=== PATIENT | female | born 1955 | race Caucasian/White ===

== ENCOUNTER 2022-02-19 05:50 | Observation (INO) ==
--- NOTE | 2022-01-25 09:33 | PAT Medication Instructions ---
Medication Instructions Date of Service January 25, 2022 Home Medications aspirin 81 mg tablet,delayed release 81 mg PO QAM atenolol 25 mg tablet 25 mg PO QAM rabeprazole 20 mg tablet,delayed release (AcipHex) 20 mg PO QAM rosuvastatin 10 mg tablet (Crestor) 10 mg PO HS thyroid (pork) 60 mg tablet 60 mg PO QAM vitamin A-vitamin C-vit E-min tablet 1 tab PO QAM STOP taking 2 weeks before surgery vitamin A-vitamin C-vit E-min tablet 1 tab PO QAM Take morning of surgery With a small sip of water, OTHERWISE NOTHING TO EAT OR DRINK AFTER MIDNIGHT: aspirin 81 mg tablet,delayed release 81 mg PO QAM (unless directed otherwise by surgeon) atenolol 25 mg tablet 25 mg PO QAM rabeprazole 20 mg tablet,delayed release (AcipHex) 20 mg PO QAM thyroid (pork) 60 mg tablet 60 mg PO QAM Take evening before surgery rosuvastatin 10 mg tablet (Crestor) 10 mg PO HS Other Notes If you have any questions please call us at [phone] or [phone] or [phone] or [phone]
--- NOTE | 2022-01-30 12:10 | Anesthesiology Consultation ---
Date of Service January 30, 2022 Assessment & Plan (1) Encounter for pre-operative examination: - COVID screening: Per assessment on 01/30: No known COVID-19 positive contacts or current COVID-19 related symptoms. Travel screen negative. Patient vaccinated. At surgeon discretion if preop Covid testing being done. - Claustrophobia: "Has had to be a general anesthetic for MRIs".. Pt request: request not to lay flat on back in the recovery room after surgery, "tends to panic" if flat on back while waking up. - RUE limb restrictions - Outpatient joint assessment: Pt currently scheduled for inpatient pathway. If surgeon requests review for outpatient joint pathway, patient is not recommended candidate for outpatient joint program from anesthesia standpoint. - Patient acceptable risk for surgery pending surgeon-ordered preop A1C (pt planning to have done 02/01 with PCP- Marcella Jimenez/[facility]). Chart Review Chart Review: Patient seen in Pre Admission Testing Teaching & Discussion Pre-Anesthesia Teaching/Discussion Notes: Instructed NPO after midnight before surgery,except medications with 15 cc of water. Medication instructions provided according to the PAT guidelines. History Surgery Operation Date: 02/19/22 10:30 Proposed Procedures p Left Total Knee Arthroplasty - Andrea Rahman, Height/Weight Height: 5 ft 2 in Weight: 111.6 kg Allergies Allergy/AdvReac Type Severity Reaction Status Date / Time doxycycline Allergy Large hive Verified 01/28/22 11:10 on back of hand, itching blister Penicillins Allergy Rash Verified 01/24/22 14:03 Sulfa (Sulfonamide Allergy Welts, lip Verified 01/28/22 11:10 Antibiotics) swelling rosuvastatin [From Crestor] AdvReac Myalgias Verified 01/30/22 13:02 Medications Home Medications Medication Instructions Recorded Confirmed Last Taken aspirin 81 mg tablet,delayed 81 mg PO QAM 01/24/22 01/24/22 Unknown release atenolol 25 mg tablet 25 mg PO QAM 01/24/22 01/24/22 Unknown rabeprazole 20 mg tablet,delayed 20 mg PO QAM 01/24/22 01/24/22 Unknown release (AcipHex) thyroid (pork) 60 mg tablet 60 mg PO QAM 01/24/22 01/24/22 Unknown vitamin A-vitamin C-vit E-min 1 tab PO QAM 01/24/22 01/24/22 Unknown tablet Past Medical History Medical History (Updated 01/30/22 @ 12:09 by Marely Reynolds) Degenerative disc disease GERD (gastroesophageal reflux disease) History of claustrophobia "Has had to be a general anesthetic for MRIs" Pt request: request not to lay flat on back in the recovery room after surgery, "tends to panic" if flat on back while waking up. Hx of breast cancer 2006 s/p right masctectomy + LND and chemo RUE limb restriction Hx of supraventricular tachycardia Reason for Atenolol Hyperlipidemia Hypothyroidism Morbid obesity Neuropathy B/L feet/LEs Osteoarthritis Exercise / Class Metabolic Activity III < 4 Walking/Shop/Light housework (one FS (no CP, + SOB)) Past Surgical History Surgical History (Updated 01/28/22 @ 11:34 by Marely Reynolds) History of esophagogastroduodenoscopy (EGD) Hx of cataract extraction Left Hx of cervical discectomy C6-C7 Hx of colonoscopy Hx of elbow surgery Left elbow tendon repair (2019) Hx of laminectomy L4-L5 Hx of mastectomy Right + LND Hx of repair of right rotator cuff Hx of tubal ligation Social History Smoking Status: Never smoker Do You Dip or Chew Tobacco: No Hx Alcohol Use: Yes alcohol intake frequency: other Alcohol Intake Frequency Comment: very rarely Hx Substance Use: No substance use type: does not use Review of Systems Patient denies chest pain, shortness of breath, dyspnea on exertion, fever, chills, cough, wheezing, palpitations. Physical Exam Vital Signs VITALS BP 150/79 P 56 TEMP 98.1 SP02 96%RA RESP 16 PHYSICAL Full cervical extension range of motion. Full TMJ range of motion. TMD 2.5 finger breaths Mallampati Score 3 Dentition: intact, + crowns (molars) Lungs: clear throughout to auscultation Cardiac: regular rate and rhythm, no murmurs noted Spine: normal Carotid arteries: negative bruit Extremities: no edema Lab Results Anesthesia Preop Results Results Anesthesia Widget: WBC 3.81 K/ul (4.8-10.8) L 01/30/22 Hgb 14.1 g/dl (12.0-16.0) 01/30/22 Hct 42.3 % (34.1-44.9) 01/30/22 Plt 183 K/uL (130-400) 01/30/22 Na 140 mmol/L (136-145) 01/30/22 K 4.2 mmol/L (3.5-5.1) 01/30/22 Cl 104 mmol/L (98-107) 01/30/22 CO2 31 mmol/L (21-32) 01/30/22 BUN 15 mg/dl (6-23) 01/30/22 Creat 0.79 mg/dl (0.6-1.2) 01/30/22 Glucose Level 92 mg/dl (70-99(Fasting)) 01/30/22 PT 11.0 Seconds (9.0-12.0) 01/30/22 PTT 26.7 Seconds (21.0-31.0) 01/30/22 INR 1.0 (0.9-1.1) 01/30/22 Urine Color Yellow 01/30/22 Urine Appearance Clear (Clear) 01/30/22 Urine pH 6.0 (4.5-7.5) 01/30/22 Urine Specific [place] 1.017 (1.000-1.030) 01/30/22 Urine Protein Negative (Negative) 01/30/22 Urine Glucose (UA) Negative (Negative) 01/30/22 Urine Ketones Negative (Negative) 01/30/22 Urine Blood Negative (Negative) 01/30/22 Urine Nitrite Negative (Negative) 01/30/22 Urine Bilirubin Negative (Negative) 01/30/22 Urine Urobilinogen Negative (Negative) 01/30/22 Urine Leukocyte Esterase 1+ (Negative) H 01/30/22 Urine WBC (Auto) 1-5 /hpf (0-5) 01/30/22 Urine RBC (Auto) 0-4 /hpf (0-4) 01/30/22 Urine Hyaline Casts (Auto) 0 /lpf (0-5) 01/30/22 Urine Epithelial Cells (Auto) 20-30 /lpf (0-5) H 01/30/22 Urine Bacteria (Auto) Negative (Negative) 01/30/22 Blood Type O Positive 01/30/22 Antibody Screen NEGATIVE 01/30/22 Testing Electrocardiogram Date: 01/30/22 SB at 57bpm. unconfirmed report. Chest X-Ray Date: 01/30/22 Findings: + NAD Echocardiogram Date: 08/21/16 LVEF 55 to 60%. Mild TR. COVID-19 Risk Screen Screening Information COVID-19 Screen Date: 01/30/22 Exposure 21 Days Family/Household +COVID Last 21 Days: No Exposure 10 Days Any COVID Exposure Last 10 Days: No Symptoms Last 10 Days Experienced COVID Sx Last 10 Days: No + COVID 0-90 Days COVID + in Last 0-90 Days: No
--- NOTE | 2022-02-06 08:05 | History & Physical Report ---
Date of Service February 06, 2022 date of surgery: 02/19/22 Procedure: Left Total Knee Arthroplasty Surgeon: Andrea Rahman Assessment & Plan (1) Arthritis of knee, left: Plan: Risks and benefits of procedure discussed in detail today, patient would like to proceed with a left total knee replacement at [facility] as scheduled. will obtain medical clearance from Dr Jimenez prior to surgery as well as obtain PATs at [facility]. Will place on ASA 81mg po bid x 1 month post op, f/u 2 weeks post op for routine post-operative care and x-ray, sooner if having any problems. will make arrangements for HHPT at the time of discharge. At this point in time, has failed conservative measures and would like to proceed with surgical intervention. She states that she has had side effects with oxycodone in the past, she is willing to try this immediately postop and see how she responds. If she is having any issues we discussed when to go to tramadol as well The risks and benefits have been discussed including, but not limited to, risk of infection, nerve injury, stiffness, loss of motion, failure to improve, etc. Reasonable outcomes and options of treatment were discussed. An explanation of appropriate alternatives to the procedure that may be advantageous were discussed and their risks and benefits, as well as the risks and benefits of not proceeding with treatment. I offered to answer any additional inquiries concerning the treatment involved. All the patient's questions were answered. The patient is agreeable, understanding of the treatment plan and alternatives, and wishes to proceed with the treatment plan. History of Present Illness Chief Complaint: left knee pain Primary Care Provider: Mary Jimenez Kim is a pleasant 66-year-old female who presented for preop evaluation prior to her left total knee replacement. She states she is having pain in his knee for many years now which is gradually worsened, is now affecting her daily activities including walking standing going up and down stairs. She undergone prior viscosupplementation as well as cortisone injection without much relief. She has history of prior knee arthroscopy approximately 12 years ago. She is tried oral anti-inflammatories and Tylenol without relief. At this point time is failed conservative measures and like to proceed with a left total knee replacement. Allergies Allergy/AdvReac Type Severity Reaction Status Date / Time doxycycline Allergy Large hive Verified 01/28/22 11:10 on back of hand, itching blister Penicillins Allergy Rash Verified 01/24/22 14:03 Sulfa (Sulfonamide Allergy Welts, lip Verified 01/28/22 11:10 Antibiotics) swelling rosuvastatin [From Crestor] AdvReac Myalgias Verified 01/30/22 13:02 Home Medications Medication Instructions Recorded Confirmed Type aspirin 81 mg tablet,delayed 81 mg PO QAM 01/24/22 01/24/22 History release atenolol 25 mg tablet 25 mg PO QAM 01/24/22 01/24/22 History rabeprazole 20 mg tablet,delayed 20 mg PO QAM 01/24/22 01/24/22 History release (AcipHex) thyroid (pork) 60 mg tablet 60 mg PO QAM 01/24/22 01/24/22 History vitamin A-vitamin C-vit E-min 1 tab PO QAM 01/24/22 01/24/22 History tablet Past Med/Surg History Medical History Degenerative disc disease GERD (gastroesophageal reflux disease) History of claustrophobia "Has had to be a general anesthetic for MRIs" Pt request: request not to lay flat on back in the recovery room after surgery, "tends to panic" if flat on back while waking up. Hx of breast cancer 2007 s/p right masctectomy + LND and chemo RUE limb restriction Hx of supraventricular tachycardia Reason for Atenolol Hyperlipidemia Hypothyroidism Morbid obesity Neuropathy B/L feet/LEs Osteoarthritis Surgical History History of esophagogastroduodenoscopy (EGD) Hx of cataract extraction Left Hx of cervical discectomy C6-C7 Hx of colonoscopy Hx of elbow surgery Left elbow tendon repair (2019) Hx of laminectomy L4-L5 Hx of mastectomy Right + LND Hx of repair of right rotator cuff Hx of tubal ligation Social History Smoking Status: Never smoker Second Hand Exposure: Yes (as a kid); Hx Alcohol Use: Yes Hx Substance Use: No Preferred Language: Korean Communication Ability: Effective Glove Sewer Required: No Beliefs That Will Affect Care: None Current Living Situation: Spouse Feels Safe at Home: Yes Assistive Devices: Glasses Review of Systems Review of Systems: All systems reviewed & are unremarkable except as noted in HPI & below Constitutional: no fever, no chills and no sweats Respiratory: no cough and no dyspnea Cardiovascular: no chest pain, no dyspnea and no orthopnea Gastrointestinal: no abdominal pain, no nausea and no vomiting Musculoskeletal: as per Subjective / HPI Physical Exam Physical Exam: HT: 5ft 2in WT: 111.6kg Constitutional: WD/WN, vitals as above no acute distress Respiratory: normal respiratory effort, lungs clear to auscultation no respiratory distress, no labored breathing and does not use accessory muscles Cardiovascular: RRR, no murmur, no edema Gastrointestinal (Abdomen): normal bowel sounds, soft, nontender, no hepatosplenomegaly Musculoskeletal: Knee: + knee abnormal to inspection (LEFT KNEE), + effusion (+1 effusion), + surgical incision (well healed portals), + limited ROM of knee (ROM 0/3/110), + knee ROM with crepitation, + joint line tenderness (medial joint line) and + Spring's sign positive; no deformity, no skin erythema, no ecchymosis, no valgus laxity, no varus laxity, anterior drawer test negative, Pedro Pablo's sign negative and pivot shift test negative Results & Data Results & Data ([facility]) Diagnostic Findings Left Knee X-ray: left knee series confirm advanced degenerative changes to the left knee, greatest medial compartments and patellofemoral joint, showing joint space narrowing, osteophyte formation and subchondral sclerosis. no acute bony pathology noted.
[2022-02-19] MEDS ORDERED: ACETAMINOPHEN 500 MG TAB PO SCH (06:00)
[2022-02-19] MEDS ORDERED: FAMOTIDINE 20 MG TAB PO SCH (06:00)
[2022-02-19] MEDS ORDERED: dexAMETHasone 4 MG TAB PO SCH (06:00)
[2022-02-19] MEDS ORDERED: ceFAZolin 2000MG 2,000 MG/15 ML SYR IV SCH (06:00)
[2022-02-19] MEDS ORDERED: ROPIVACAINE 0.5% HCL/PF 150 MG, BUPIVACAINE 0.75% MPF 20 ML, EPINEPHrine 30MG/30ML (OR ... INSTIL SCH (06:00)
[2022-02-19] MEDS ORDERED: LR 500ML BOLUS, THEN 15ML/HR IV SCH (06:00)
[2022-02-19] MEDS ORDERED: GABAPENTIN 300 MG CAP PO SCH (06:00)
[2022-02-19] MEDS ORDERED: METOCLOPRAMIDE HCL 10 MG TABLET PO SCH (06:00)
[2022-02-19] MEDS ORDERED: TRANEXAMIC ACID 1,000 MG **IV Pre-op IV SCH (06:00)
[2022-02-19] MEDS ORDERED: TRANEXAMIC ACID 1,000 MG **IV Intra-op IV SCH (06:00)
[2022-02-19] MEDS ORDERED: DEXAMETHASONE SOD INJ 4 MG/ML VIAL ONE (06:29)
[2022-02-19] MEDS ORDERED: BUPIVACAINE 0.25% 30 ML VIAL ONE (06:29)
[2022-02-19] MEDS ORDERED: BUPIVACAINE 0.5 % 5 MG/1 ML PF 10ML VIAL ONE (06:29)
[2022-02-19] MEDS ORDERED: EPINEPHrine INJ 1 MG/ML AMP ONE (06:29)
[2022-02-19] MEDS ORDERED: PROPOFOL IV EMULSION 10 MG/ML 20 ML VIAL IV ONE (07:08)
[2022-02-19] MEDS ORDERED: LIDOCAINE 2% 20 MG/ML 5 ML SYR IV ONE (07:08)
[2022-02-19] MEDS ORDERED: MIDAZOLAM HCL 1 MG/ML 2ML VIAL ONE (07:08)
[2022-02-19] MEDS ORDERED: fentaNYL citrate 100 MCG/2 ML VIAL ONE (07:08)
[2022-02-19] MEDS ORDERED: ORTHO JOINT ANESTHETIC ONE (07:15)
--- NOTE | 2022-02-19 07:33 | History & Physical Bridge Note ---
Date of Service February 19, 2022 History & Physical Bridge Note I have examined the patient, reviewed the History & Physical and in the interval since the performance of the History & Physical I have noted the following changes of clinical significance: no changes noted
[2022-02-19] MEDS ORDERED: ATROPINE SULFATE 0.1 MG/ML 10ML SYR IV PRN (07:57)
[2022-02-19] MEDS ORDERED: ePHEDrine sulfate 50 MG/ML AMP IV PRN (07:57)
[2022-02-19] MEDS ORDERED: PROMETHAZINE HCL 6.25 MG in SODIUM CHLORIDE 0.9% 50 ML IV PRN (07:57)
[2022-02-19] MEDS ORDERED: ONDANSETRON INJ 2 MG/ML 2 ML VIAL IV PRN ×2 (07:57→11:41)
[2022-02-19] MEDS ORDERED: fentaNYL citrate 100 MCG/2 ML VIAL IV PRN (07:57)
--- NOTE | 2022-02-19 10:01 | Operative Report ---
Post Operative Report Pre & Post Diagnosis Operation Date: 02/19/22 08:25 Pre-Op Diagnosis: Left Knee Osteoarthritis Post-Op Diagnosis: Left Knee Osteoarthritis I identified the patient and participated in the time-out.: Yes Procedure Operation Date: 02/19/22 08:25 Actual Procedures p Left Total Knee Art utilizing Walker & Nephew journey to an en bloc total knee arthroplasty size femur 5 tibia for polynine patella 32 oval hroplasty(Left) - Andrea Rahman DO Surgeon Andrea Rahman DO Tobacco Flavorer Nolan RYAN Estimated Blood Loss 5 Findings Consistent with Post-Op Diagnosis Patient presents severe end-stage tricompartmental degenerative joint disease left knee no response to conservative management occluding physical therapy anti-inflammatories relative rest patient has eburnated [id number] marginal osteophytes subchondral sclerosis with moderate to large effusion Specimens Bone and cartilage Drains Medium bore Hemovac Anesthesia Type MAC Spinal Regional Complications none Disposition Accompanied Patient To Recovery: No Disposition: Recovery Room Indications Patient presents with severe end-stage DJD left knee no response to conservative management including physical therapy anti-inflammatories relative rest activity modification above intraoperative findings were noted Description of Procedure After proper prepping and draping of the left lower extremity anterior midline incision was made over the region of the extensor extensor mechanism after meticulous hemostasis was obtained and maintained in subcutaneous tissues a medial parapatellar incision was made The patella was subluxed lateralward the medial lateral gutter were cleaned from any hypertrophic synovitis and scar tissue of the distal femoral block was placed and the distal femoral osteotomy cut was made subsequently the chamfers anterior and posterior osteotomy cuts were made utilizing the 4-in-1 block the tibia was subsequently subluxed anteriorward medial and ateral meniscal remnants were excised in their entirety remnants of the anterior and posterior cruciate ligaments were excised in their entirety excellent exposure of the proximal tibia was obtained the tibial osteotomy guide was placed on the proximal tibial osteotomy cut was made once again the knee was irrigated with copious amounts of sterile saline solution the patella was subsequently everted lateralward thickened scar tissue around the patella was removed the patella was subsequently cut utilizing a freehand techn ique and was drilled prepared for final preparation and placement of patella socially flexion-extension gaps were checked and the equal and symmetric trials were placed to the appropriate femoral and tibial trials with poly-spacer being placed for equal flexion and extension gaps and full range of motion including extension to 0 and flexion to 140 the trial components after having been taken to recovery range of motion was subsequently removed meticulous hemostasis was obtained and maintained subsequently a knee block injection of joint cocktail including ropivacaine 0.5% 150 mg. Bupivacaine 0.5% epinephrine 1-200,030 mL's toradol 30 mg dexamethasone 4 mg ketamine 10 mg clonidine 100 micrograms normal saline solution 30 mg was infiltrated into the soft tissues of the posterior knee medial lateral gutters and periosteal synovium special attention was paid to protect neurovascular structures at all times subsequently trial components having been removed the knee was irrigated with sterile saline solution. debris was removed the proximal tibia was subsequently prepared and was made ready for the placement of the tibial component tibial component was also cemented and tamped into position the femoral component was subsequently placed and cemented in the position the patellar component was subsequently cemented in position because hemostasis once again obtained and maintained wound having been thoroughly irrigated with debridement and debridement lavage was performed as well as a medial parapatellar incision closed with #1 Vicryl in interrupted fashion subcutaneous was closed with #2 Vicryl skin was closed with skin clips. PA-C was necessary for prepping and drapping as well as wound closure of deep fascia Sub cutaneous tissue and skin and was necessary for the case. A sterile compressive dressing was placed patient was taken to recovery in stable condition of report dictated by Josiah I attest to the content of the Intraoperative Record and any orders documented therein. Any exceptions are noted below.Due to the complex nature of the procedure, the entire surgery was performed with the operational assistance of Nolan TORRES. The tax assistant, under direct supervision, was involved in the actual performance of all aspects of the surgical procedure including hemostasis, tissue retraction and incision, instrument management, patient positioning, and wound closure. I attest to the content of the Intraoperative Record and any orders documented therein. Any exceptions are noted below.
--- NOTE | 2022-02-19 10:52 | Anesthesiology Progress Note ---
Date of Service February 19, 2022 Anesthesia Post Procedure Vital Signs Vital Signs: Temp Pulse Resp BP Pulse Ox O2 Del Method 02/19/22 06:10 36.8 C 68 20 148/99 H 95 Room Air Transfer of Care Handoff Completed per policy Notes Mental Status: alert / awake / arousable Patient Amnestic to Procedure: Yes Nausea / Vomiting: adequately controlled Pain: adequately controlled Airway Patency, RR, SpO2: stable & adequate BP & HR: stable & adequate Hydration State: stable & adequate Neuraxial Anesthesia: was administered and sensory block is resolving Anesthetic Complications: no major complications apparent and Pt Satisfied with anesthetic care
[2022-02-19] MEDS ORDERED: MAGNESIUM HYDROXIDE SUSP 30 ML UDC PO PRN (11:41)
[2022-02-19] MEDS ORDERED: HYDROmorphone INJ 0.5 MG/0.5 ML SYR IV PRN (11:41)
[2022-02-19] MEDS ORDERED: oxyCODONE HCL IR 5 MG TAB (IMMEDIATE RELEASE) PO PRN (11:41)
[2022-02-19] MEDS ORDERED: bisacodyL 10 MG SUPP PR PRN (11:41)
[2022-02-19] MEDS ORDERED: diphenhydrAMINE 50 MG/ML VIAL IV PRN (11:41)
[2022-02-19] MEDS ORDERED: NALOXONE HCL 0.4 MG/1 ML VIAL/CARP IV PRN (11:41)
[2022-02-19] MEDS: SODIUM CHLORIDE 0.9% 1000ML 1,000 ML IV SCH ×2 (11:50→23:42)
[2022-02-19] MEDS: ALLERGY Noted to ORDERED Medication SCH ×5 (12:51→12:55)
[2022-02-19] MEDS: ACETAMINOPHEN 500 MG TAB PO SCH ×2 (13:44→21:38)
--- NOTE | 2022-02-19 14:34 | XRay Report ---
TWO VIEWS LEFT KNEE CLINICAL HISTORY: Postoperative examination. FINDINGS: AP and crosstable lateral portable views of the left knee are obtained. A left knee arthrop lasty is in near anatomic alignment. There has been undersurface remodeling of the patella. No acute fracture is seen. There are expected postoperative changes around the knee including a surgical drain , soft tissue edema, and subcutaneous gas. IMPRESSION: Expected postoperative changes status post left knee arthroplasty. No acute fracture is s een. ACT 112: Negative or not required by law. Electronically signed by: Tru Gipson M.D. 02/19/2022 2:32 PM
[2022-02-19] MEDS: ceFAZolin 2000MG 2,000 MG/15 ML SYR IV SCH (18:33)
[2022-02-19] MEDS ORDERED: SENNA 8.6 MG TAB PO SCH (21:00)
[2022-02-19] MEDS: DOCUSATE SODIUM 100 MG CAP PO SCH (21:36)
[2022-02-19] MEDS: ASPIRIN 81 MG ECTAB PO SCH (21:36)
[2022-02-20] MEDS: ceFAZolin 2000MG 2,000 MG/15 ML SYR IV SCH (01:41)
[2022-02-20] MEDS: ACETAMINOPHEN 500 MG TAB PO SCH ×2 (06:14→14:06)
[2022-02-20] MEDS ORDERED: ARMOUR THYROID 30 MG TAB PO SCH (06:30)
[2022-02-20 06:50] LABS: Hematocrit (blood only) 38.6 % (34.1-44.9); Hemoglobin 13.2 g/dl (12.0-16.0); Mean Corpuscular Hemoglobin 28.2 pg (25.0-34.0); Mean Corpuscular Hgb Conc 34.2 g/dL (32.0-36.0); Mean Corpuscular Volume 82.5 fL (80.0-100.0); Mean Platelet Volume 9.8 fL (9.4-12.3); Platelet Count 190 K/uL (130-400); RDW Coefficient of Variation 13.2 % (11.5-14.5); RDW Standard Deviation 39.5 fL (36.4-46.3); Red Blood Count 4.68 M/uL (3.93-5.22); White Blood Count 10.12 K/ul (4.8-10.8)
[2022-02-20 07:18] LABS: BUN Creatinine Ratio 22.2 (10-20); Calcium 8.6 mg/dl (8.5-10.1); Est GFR (African American) 86.5 ml/min; Est GFR (Non-African American) 74.6 ml/min; Potassium 4.2 mmol/L (3.5-5.1)
[2022-02-20] MEDS: DOCUSATE SODIUM 100 MG CAP PO SCH (08:24)
[2022-02-20] MEDS: ASPIRIN 81 MG ECTAB PO SCH (08:24)
[2022-02-20] MEDS ORDERED: ATENOLOL 25 MG TABLET PO SCH (09:00)
[2022-02-20] MEDS ORDERED: NON-FORMULARY MEDICATION (Vitamin A-Vitamin C-Vit E-Min Tablet) PO SCH (09:00)
[2022-02-20] MEDS ORDERED: MULTIVITAMIN TAB PO SCH (09:00)
[2022-02-20] MEDS ORDERED: PANTOprazole 40 MG TAB PO SCH (09:00)
--- NOTE | 2022-02-20 11:15 | Orthopedic Progress Note ---
Date of Service February 20, 2022 Assessment & Plan (1) Arthritis of knee, left: Plan: Postop day 1 status post left total knee arthroplasty PT/OT protocols. Weightbearing as tolerated. Patient states that her foot drop did not hinder her physical therapy session this morning. DVT prophylaxis-aspirin p.o. twice daily, SCDs, RBICE goldman. Pain management as written. Patient states that she is unable to take oxycodone or hydrocodone. Can change to tramadol. DC planning-patient is planning for home health services upon discharge. We will reassess her later today to check how her foot drop is. Admission and Anticipated Discharge Date Admission Date: February 19, 2022 Subjective Postop day 1 Patient currently sitting in her chair at bedside. Having some thigh pain secondary to her tourniquet but otherwise pain is controlled. She also complains of a left foot drop. No other complaints at this time. Denies shortness of breath, chest pain, lightheadedness. Physical Exam Physical Exam: Dressings are clean, dry, and intact. Calves are soft nontender. She currently has a left foot drop. Mild decrease sensation over the dorsum of her foot that goes up the anterolateral aspect of her tibia. She has good plantar flexion but has no dorsiflexion at this time of her foot or her great toe. Hemovac drainage was around 150 mL from the previous shift Results & Data ([facility]) Vital Signs (Past 12 Hours) Vital Signs Temp Pulse Pulse Resp BP Pulse Ox O2 Del Method 02/20/22 07:30 36.7 C 66 14 128/80 96 Room Air 02/20/22 01:56 37.1 C 77 16 125/74 94 Room Air Laboratory Results Laboratory Results WBC 10.12 K/ul (4.8-10.8) 02/20/22 06:41 RBC 4.68 M/uL (3.93-5.22) 02/20/22 06:41 Hgb 13.2 g/dl (12.0-16.0) 02/20/22 06:41 Hct 38.6 % (34.1-44.9) 02/20/22 06:41 MCV 82.5 fL (80.0-100.0) 02/20/22 06:41 MCH 28.2 pg (25.0-34.0) 02/20/22 06:41 MCHC 34.2 g/dL (32.0-36.0) 02/20/22 06:41 RDW Std Deviation 39.5 fL (36.4-46.3) 02/20/22 06:41 RDW Coeff of Dawna 13.2 % (11.5-14.5) 02/20/22 06:41 Plt Count 190 K/uL (130-400) 02/20/22 06:41 MPV 9.8 fL (9.4-12.3) 02/20/22 06:41 Sodium 139 mmol/L (136-145) 02/20/22 06:41 Potassium 4.2 mmol/L (3.5-5.1) 02/20/22 06:41 Chloride 106 mmol/L (98-107) 02/20/22 06:41 Carbon Dioxide 27 mmol/L (21-32) 02/20/22 06:41 Anion Gap 6 (3-11) 02/20/22 06:41 BUN 18 mg/dl (6-23) 02/20/22 06:41 Creatinine 0.81 mg/dl (0.6-1.2) 02/20/22 06:41 Est Cr Clr Drug Dosing 77.0 ml/min 02/20/22 06:41 Est GFR ( Amer) 86.5 ml/min 02/20/22 06:41 Est GFR (Non-Af Amer) 74.6 ml/min 02/20/22 06:41 BUN/Creatinine Ratio 22.2 (10-20) H 02/20/22 06:41 Glucose 136 mg/dl (70-99(Fasting)) H 02/20/22 06:41 Calcium 8.6 mg/dl (8.5-10.1) 02/20/22 06:41 SARS-CoV-2, RNA, NAAT NEGATIVE (NEGATIVE) 02/19/22 05:50 Impressions Knee X-Ray 02/19/22 10:56 TWO VIEWS LEFT KNEE CLINICAL HISTORY: Postoperative examination. FINDINGS: AP and crosstable lateral portable views of the left knee are obtained. A left knee arthroplasty is in near anatomic alignment. There has been undersurface remodeling of the patella. No acute fracture is seen. There are expected postoperative changes around the knee including a surgical drain, soft tissue edema, and subcutaneous gas. IMPRESSION: Expected postoperative changes status post left knee arthroplasty. No acute fracture is seen. ACT 112: Negative or not required by law. Electronically signed by: Tru Gipson M.D. 02/19/2022 2:32 PM
--- NOTE | 2022-02-21 09:23 | Discharge Summary ---
Date of Service February 21, 2022 Admission HPI Per Admitting Provider Kim is a pleasant 66-year-old female who presented for preop evaluation prior to her left total knee replacement. She states she is having pain in his knee for many years now which is gradually worsened, is now affecting her daily activities including walking standing going up and down stairs. She undergone prior viscosupplementation as well as cortisone injection without much relief. She has history of prior knee arthroscopy approximately 12 years ago. She is tried oral anti-inflammatories and Tylenol without relief. At this point time is failed conservative measures and like to proceed with a left total knee replacement. Admission Exam Per Admitting Provider Physical Exam: HT: 5ft 2in WT: 111.6kg Constitutional: WD/WN, vitals as above no acute distress Respiratory: normal respiratory effort, lungs clear to auscultation no respiratory distress, no labored breathing and does not use accessory muscles Cardiovascular: RRR, no murmur, no edema Gastrointestinal (Abdomen): normal bowel sounds, soft, nontender, no hepatosplenomegaly Musculoskeletal: Knee: + knee abnormal to inspection (LEFT KNEE), + effusion (+1 effusion), + surgical incision (well healed portals), + limited ROM of knee (ROM 0/3/110), + knee ROM with crepitation, + joint line tenderness (medial joint line) and + Spring's sign positive; no deformity, no skin erythema, no ecchymosis, no valgus laxity, no varus laxity, anterior drawer test negative, Pedro Pablo's sign negative and pivot shift test negative Principal Diagnosis Left knee osteoarthritis Discharge Data Allergies Allergy/AdvReac Type Severity Reaction Status Date / Time doxycycline Allergy Large hive Verified 02/19/22 06:16 on back of hand, itching blister Penicillins Allergy Rash Verified 02/19/22 06:16 Sulfa (Sulfonamide Allergy Welts, lip Verified 02/19/22 06:16 Antibiotics) swelling rosuvastatin [From Crestor] AdvReac Myalgias Verified 02/19/22 06:16 Procedures Performed Operation Date: 02/19/22 08:25 Actual Procedures p Left Total Knee Arthroplasty(Left) - Andrea Rahman DO Ordered Studies 02/19/22 05:00 US - OR guided needle placemen Routine Hospital Course (1) Arthritis of knee, left: Patient:KIM XAVIER Admit Date:02/19/22 MR#:[id number] Att Phy:Andrea Rahman D.O. Acct ID:[id number] Angelica Phy:Mary Jimenez D.O. Date:1955 Fam Phy: Age:66 Location:3E Sex:F Room/Bed:[facility] cc: ~ *NOTICE TO RECEIVING CONSTITUTION PARTY/AGENCY This information is strictly Confidential and protected under [place] law. [place] law prohibits you from making any further disclosure of this information unless further disclosure is expressly permitted by the written consent of the person to whom it pertains or is authorized by law. A general authorization for the release of medical or other information is not sufficient for this purpose. Hospital accepts no responsibility if the information is made available to any other person, INCLUDING THE PATIENT. ADDENDUM 02/20/22ddendum February 20, 2022 14:34 Patient doing well. Pain is controlled. Her foot drop is starting to slowly return to normal. She states that she is getting most of the feeling back into her foot and she now does have some slight dorsiflexion of the great toe. Patient ambulated 160 feet with physical therapy without difficulty. Patient is wanting to go home and she will have home health services for PT. Plan for discharge to home. Discussed with her that if she continues to have problems with her foot drop and not returning over the next 72 hours, to contact the office. Foot drop is likely secondary to intraoperative injection that is used for pain control. We discussed that this sometimes takes up to 48 hours to return to normal. Addendum Signed By: <Electronically signed by Nolan Suresh PA-C> 02/20/221435 Addendum Cosigned By: <Electronically signed by Luis Yanes MD> 02/20/22 1541 Created: 02/20/2201/03/1436 Date of Service February 20, 2022 Assessment & Plan (1) Arthritis of knee, left: Plan: Postop day 1 status post left total knee arthroplasty PT/OT protocols. Weightbearing as tolerated. Patient states that her foot drop did not hinder her physical therapy session this morning. DVT prophylaxis-aspirin p.o. twice daily, SCDpaul, BRICE goldman. Pain management as written. Patient states that she is unable to take oxycodone or hydrocodone. Can change to tramadol. DC planning-patient is planning for home health services upon discharge. We will reassess her later today to check how her foot drop is. Admission and Anticipated Discharge Date Admission Date: February 19, 2022 Subjective Postop day 1 Patient currently sitting in her chair at bedside. Having some thigh pain secondary to her tourniquet but otherwise pain is controlled. She also complains of a left foot drop. No other complaints at this time. Denies shortness of breath, chest pain, lightheadedness. Physical Exam Physical Exam: Dressings are clean, dry, and intact. Calves are soft nontender. She currently has a left foot drop. Mild decrease sensation over the dorsum of her foot that goes up the anterolateral aspect of her tibia. She has good plantar flexion but has no dorsiflexion at this time of her foot or her great toe. Hemovac drainage was around 150 mL from the previous shift Results & Data ([facility]) Vital Signs (Past 12 Hours) Vital Signs Temp Pulse Pulse Resp BP Pulse Ox O2 Del Method C 02/20/22 07:30 36.7 C 66 14 128/80 96 Room Air 02/20/22 01:56 37.1 C 77 16 125/74 94 Room Air Laboratory Results Laboratory Results WBC 10.12 K/ul (4.8-10.8) 02/20/22 06:41 RBC 4.68 M/uL (3.93-5.22) 02/20/22 06:41 Hgb 13.2 g/dl (12.0-16.0) 02/20/22 06:41 Hct 38.6 % (34.1-44.9) 02/20/22 06:41 MCV 82.5 fL (80.0-100.0) 02/20/22 06:41 MCH 28.2 pg (25.0-34.0) 02/20/22 06:41 MCHC 34.2 g/dL (32.0-36.0) 02/20/22 06:41 RDW Std Deviation 39.5 fL (36.4-46.3) 02/20/22 06:41 RDW Coeff of Dawna 13.2 % (11.5-14.5) 02/20/22 06:41 Plt Count 190 K/uL (130-400) 02/20/22 06:41 MPV 9.8 fL (9.4-12.3) 02/20/22 06:41 Sodium 139 mmol/L (136-145) 02/20/22 06:41 Potassium 4.2 mmol/L (3.5-5.1) 02/20/22 06:41 Chloride 106 mmol/L (98-107) 02/20/22 06:41 Carbon Dioxide 27 mmol/L (21-32) 02/20/22 06:41 Anion Gap 6 (3-11) 02/20/22 06:41 BUN 18 mg/dl (6-23) 02/20/22 06:41 Creatinine 0.81 mg/dl (0.6-1.2) 02/20/22 06:41 Est Cr Clr Drug Dosing 77.0 ml/min 02/20/22 06:41 Est GFR ( Amer) 86.5 ml/min 02/20/22 06:41 Est GFR (Non-Af Amer) 74.6 ml/min 02/20/22 06:41 BUN/Creatinine Ratio 22.2 (10-20) H 02/20/22 06:41 Glucose 136 mg/dl (70-99(Fasting)) H 02/20/22 06:41 Calcium 8.6 mg/dl (8.5-10.1) 02/20/22 06:41 SARS-CoV-2, RNA, NAAT NEGATIVE (NEGATIVE) 02/19/22 05:50 Impressions Knee X-Ray 02/19/22 10:56 TWO VIEWS LEFT KNEE CLINICAL HISTORY: Postoperative examination. FINDINGS: AP and crosstable lateral portable views of the left knee are obt ained. A left knee arthroplasty is in near anatomic alignment. There has been undersurface remodeling of the patella. No acute fracture is seen. There are expected postoperative changes around the knee including a surgical drain, soft tissue edema, and subcutaneous gas. IMPRESSION: Expected postoperative changes status post left knee arthroplasty. No acute fracture is seen. ACT 112: Negative or not required by law. Electronically signed by: rTu Gipson M.D. 02/19/2022 2:32 PM Signed By: <Electronically signed by Nolan Suresh PA-C> 02/20/22 1115 Laboratory Results WBC 10.12 K/ul (4.8-10.8) 02/20/22 06:41 RBC 4.68 M/uL (3.93-5.22) 02/20/22 06:41 Hgb 13.2 g/dl (12.0-16.0) 02/20/22 06:41 Hct 38.6 % (34.1-44.9) 02/20/22 06:41 MCV 82.5 fL (80.0-100.0) 02/20/22 06:41 MCH 28.2 pg (25.0-34.0) 02/20/22 06:41 MCHC 34.2 g/dL (32.0-36.0) 02/20/22 06:41 RDW Std Deviation 39.5 fL (36.4-46.3) 02/20/22 06:41 RDW Coeff of Dawna 13.2 % (11.5-14.5) 02/20/22 06:41 Plt Count 190 K/uL (130-400) 02/20/22 06:41 MPV 9.8 fL (9.4-12.3) 02/20/22 06:41 Sodium 139 mmol/L (136-145) 02/20/22 06:41 Potassium 4.2 mmol/L (3.5-5.1) 02/20/22 06:41 Chloride 106 mmol/L (98-107) 02/20/22 06:41 Carbon Dioxide 27 mmol/L (21-32) 02/20/22 06:41 Anion Gap 6 (3-11) 02/20/22 06:41 BUN 18 mg/dl (6-23) 02/20/22 06:41 Creatinine 0.81 mg/dl (0.6-1.2) 02/20/22 06:41 Est Cr Clr Drug Dosing 77.0 ml/min 02/20/22 06:41 Est GFR ( Amer) 86.5 ml/min 02/20/22 06:41 Est GFR (Non-Af Amer) 74.6 ml/min 02/20/22 06:41 BUN/Creatinine Ratio 22.2 (10-20) H 02/20/22 06:41 Glucose 136 mg/dl (70-99(Fasting)) H 02/20/22 06:41 Calcium 8.6 mg/dl (8.5-10.1) 02/20/22 06:41 SARS-CoV-2, RNA, NAAT NEGATIVE (NEGATIVE) 02/19/22 05:50 Impressions Knee X-Ray 02/19/22 10:56 TWO VIEWS LEFT KNEE CLINICAL HISTORY: Postoperative examination. FINDINGS: AP and crosstable lateral portable views of the left knee are obtained. A left knee arthroplasty is in near anatomic alignment. There has been undersurface remodeling of the patella. No acute fracture is seen. There are expected postoperative changes around the knee including a surgical drain, soft tissue edema, and subcutaneous gas. IMPRESSION: Expected postoperative changes status post left knee arthroplasty. No acute fracture is seen. ACT 112: Negative or not required by law. Electronically signed by: Tru Gipson M.D. 02/19/2022 2:32 PM Total Time Total Time Spent Total Time Spent (In Minutes): 5 Discharge Plan Discharge Items Patient Disposition: Home - Home Health Services Reason For Visit: LEFT TKA Discharge Diagnosis: Left Knee Osteoarthritis Activity: Per Instructions section Weightbearing: Left weightbearing Weightbearing Comment: as tolerated with walker Non-emergency contact: Surgeon Call non-emergency contact if: you have any medication questions, your pain is not controlled, your temperature is above 101.5, your wound has increased redness and your wound has increased drainage Follow-up/Referrals: Andrea Rahman DO [Surgeon] - (Follow up with Dr Rahman or his PA in 2 weeks from the day of your surgery for your first post operative visit. ) Mary Jimenez, DKennOKenn [Primary Care Provider] - Diet: Regular Addtl Attending Provider Instructions: ACTIVITY RECOMMENDATIONS: SELF CARE INSTRUCTIONS AFTER TOTAL KNEE REPLACEMENT A. You may need to continue a physical therapy program after discharge from the hospital. There are several options available to you. Your doctor will assist you in selecting the best one for you. 1. An out-patient facility 2 to 3 times a week for therapy or home therapy. 2. Continue working on all exercises taught to you in the hospital. Your goals should be to increase bending of your knee to 90 degrees and beyond and to fully straighten your knee. B. You may progress at your own pace from walking with a walker or crutches to a cane; then to no assistive devices. C. Make walking a part of your daily routine. Be up as much as comfortable with rest periods throughout the day. Rest with leg elevation is very important. Use the ice wrap frequently for the first 3-4 weeks. D. There are no restrictions on activities. 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 E. Wear the long elastic stockings (BRICE hose) 20 hours a day for 2 weeks after surgery. They can be removed several times a day for laundering and for a bath. F. You may shower, no tub baths until cleared by your doctor. SPECIAL CARE INSTRUCTIONS: VERY IMPORTANT TO READ AND REVIEW A. There are a few signs you need to watch for after you are home. Call [facility] if you notice any of the followin. Increased severe knee pain. Some pain is expected especially when you exercise. 2. Increased swelling in your leg or knee; pain or swelling of the calf muscle in either lower leg. 3. Any fluid drainage from the incision. 4. Shortness of breath or chest pain. B. Please call [facility] at if you have any concerns or questions about your operation or recovery. The doctor or his nurse will return your call promptly. C. You must take antibiotics before dental work, bladder, bowel or other surgery. Your doctor will provide you with a permanent care to carry describing this precaution. IMPORTANT: * REMEMBER TO TAKE ASPIRIN, 81 MG, TWICE DAILY FOR 4 WEEKS UNLESS OTHERWISE DIRECTED. THIS IS YOUR BLOOD THINNER.. * CALL IF INCREASED PAIN, REDNESS, DRAINAGE OR FEVER GREATER THAT 101. * WEAR BRICE HOSE 20 HOURS PER DAY FOR 2 WEEKS. * BRAYDEN Dressing- This is a large suction dressing covering your incision. This will help pull any excess drainage from the wound and allow your incision to heal properly. You may shower with this if you can keep the unit outside of the shower. If any bleeding or leakage is noted please call your doctor's office. This will remain on your incision for 7 days and then should be removed. This can be done yourself or by the home nursing staff if applicable. The entire unit is disposable once removed. Once removed, keep incision clean and dry. If redness or drainage is noted, please call your surgeon. . *After brayden dressing is removed, ---> DERMABOND Prineo- This is a mesh tape dressing that is covered with glue. It should remain in place until the incision is properly healed, usually 10-14 days. This dressing is designed to naturally slough off. You may trim the excess mesh tape as it peels off. Incision may be briefly wet in a shower. Dry immediately by blotting with a clean, dry towel. Do not bath or swim until instructed by your doctor. Do not scratch, rub, or pick at the dressing. Do not apply any topical ointments or lotions until dressing is completely removed and/or instructed by your doctor. There may be a small piece of suture material at one end of your incision. Do not pull or trim this. If it is bothersome or catching on clothing, you may cover it with a band-aid. FOLLOW UP VISIT: If appointment is not already scheduled: Please call [facility] to make a follow-up appointment for 2 weeks after your surgery at . Stand-Alone Forms: My [facility], Smoking Cessation Medications and DC Order Prescriptions: New aspirin 81 mg Tablet,Delayed Release (Dr/Ec) 81 mg PO BID 30 Days Qty: 60 0RF acetaminophen [Tylenol Extra Strength] 500 mg Tablet 1,000 mg PO Q8 14 Days Qty: 84 0RF tramadol 50 mg tablet 50 - 100 mg PO Q4H MDD 12 tabs PRN (Reason: pain) Qty: 36 0RF Continued rabeprazole [AcipHex] 20 mg Tablet,Delayed Release (Dr/Ec) 20 mg PO QAM atenolol 25 mg Tablet 25 mg PO QAM vitamin A-vitamin C-vit E-min Tablet 1 tab PO QAM thyroid (pork) 60 mg Tablet 60 mg PO QAM Discontinued aspirin 81 mg Tablet,Delayed Release (Dr/Ec) 81 mg PO QAM Discharge Orders: Discharge Order (Routine); Ordered 02/20/22 Ordered By: Nolan Suresh Admission Data Admit Date/Time: 02/19/22 10:56 Attending Provider: Andrea Rahman Admit Provider: Andrea Rahman Primary Care Provider: Mary Jimenez Other Interventions: Discharge Summary Assessment (RN) Last Done: 02/20/22 14:58
== END 2022-02-20 16:00 | disposition home health service (06) ==
LOC: ASU 05:50 → 3E 05:50